=== PATIENT | male | born 1955 | race Caucasian/White ===

== ENCOUNTER → 2023-10-08 10:04 | Outpatient (BNVA) | payer MEDICARE, MEDICAID, SELFPAY | PROVIDERS: PCP Nurse Practitioner Family; Referring Provider Nurse Practitioner Family; Visit Provider Internal Medicine | DX: M81.0 Age-related osteoporosis without current pathological fracture (principal); E21.3 Hyperparathyroidism, unspecified; E55.9 Vitamin D deficiency, unspecified | CPT/HCPCS: 36415; 80053; 82306; 82310; 83970; 99204 ==

== ENCOUNTER 2023-11-10 08:00 | Outpatient (CLI) | payer MEDICARE, MEDICAID, SELFPAY ==
--- NOTE | 2023-11-10 08:00 | NM_ITS ---
WS: [id number] EXAMINATION: NM parathyroid [id number] ORDER DATE: 11/10/2023 9:00 AM COMPARISON: No prior comparisons HISTORY: E21.3 - Hyperparathyroidism, unspecified TECHNIQUE: Parathyroid scintigraphy with 19.1 mCi of technetium 99m administered. AP and oblique views obtained with and without chin and suprasternal notch markers. Initial and 2 hour delayed imagi ng acquired. FINDINGS: Retained nodular activity inferior to the RIGHT thyroid suspicious for parathyroid adenoma on the de layed imaging. Normal salivary gland activity. Nodular activity overlying the inferior RIGHT thyroid lobe suspicious for thyroid nodule. Normal homogeneous uptake LEFT thyroid lobe NM/NM parathyroid [id number] IMPRESSION: 1. Persistent retained nodular activity inferior to the RIGHT thyroid lobe erin picious for parathyroid adenoma just above the suprasternal notch 2. Slight nodular activity corresponding to the inferior RIGHT thyroid suspici ous for a thyroid nodule. This could be further evaluated with ultrasound.
== END 2023-11-10 08:21 | disposition home or self-care (01) ==
PROVIDERS: PCP Nurse Practitioner Family; Visit Provider Internal Medicine
DX: E21.3 Hyperparathyroidism, unspecified (principal); E04.2 Nontoxic multinodular goiter
CPT/HCPCS: 78070; A9500

== ENCOUNTER → 2023-12-02 09:15 | Outpatient (BNVA) | payer MEDICARE, MEDICAID, SELFPAY | PROVIDERS: PCP Nurse Practitioner Family; Visit Provider Internal Medicine | DX: M81.0 Age-related osteoporosis without current pathological fracture (principal); E21.0 Primary hyperparathyroidism; E55.9 Vitamin D deficiency, unspecified; E04.1 Nontoxic single thyroid nodule; I25.10 Atherosclerotic heart disease of native coronary artery without angina pectoris; K08.9 Disorder of teeth and supporting structures, unspecified; E21.3 Hyperparathyroidism, unspecified; R07.9 Chest pain, unspecified | CPT/HCPCS: 99214 ==

== ENCOUNTER → 2023-12-15 12:36 | Outpatient (BNVA) | payer MEDICARE, MEDICAID, SELFPAY | PROVIDERS: PCP Nurse Practitioner Family; Referring Provider Internal Medicine; Visit Provider Internal Medicine Cardiovascular Disease | DX: I25.10 Atherosclerotic heart disease of native coronary artery without angina pectoris (principal) | CPT/HCPCS: 93005 ==

== ENCOUNTER 2023-12-29 08:03 | Outpatient (CLI) | payer MEDICARE, MEDICAID, SELFPAY ==
--- NOTE | 2023-12-29 08:08 | US_ITS ---
WS: [id number] THYROID ULTRASOUND HISTORY: THYROID NODULE COMPARISON: Parathyroid nuclear medicine scan 11/10/2023 Right lobe: 2.0 cm x 1.9 cm x 4.5 cm (w x ap x l). Volume: 8.6 cm3. Slightly enlarged thyroid. There is a hyperechoic, nearly isoechoic, to the remaining thyroid in the lower pole measuring 1.2 x 1.1 x 1.1 cm. Mild increased vascularity. No calcifications. Left lobe: 1.7 cm x 1.7 cm x 4.5 cm (w x ap x l). Volume: 5.9 cm3. Normal size and echotexture. No significant or dominant nodules are present. Isthmus: 0.4 cm. US/US thyroid [id number] IMPRESSION: 1. TI-RADS 3; hyperechoic nodule lower pole RIGHT thyroid. As per TI-RADS crit eria no additional follow-up necessary. 2. No additional nodules.
== END 2023-12-29 08:04 | disposition home or self-care (01) ==
LOC: RAD 08:03
PROVIDERS: PCP Nurse Practitioner Family; Visit Provider Internal Medicine Cardiovascular Disease
DX: E04.1 Nontoxic single thyroid nodule (principal)
CPT/HCPCS: 76536

== ENCOUNTER 2024-01-18 08:03 | Outpatient (CLI) | payer MEDICARE, MEDICAID, SELFPAY ==
--- NOTE | 2024-01-18 | ECG_ITS ---
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 Baseline heart rate was 56 beats per minute. Baseline blood pressure was 100 3785 millimeters of mercury. Target heart rate was 151 beats per minute. Maximum heart rate achieved was 141, which was 93 % of the target heart rate. Maximum blood pressure was 153/93 millimeters of mercury. Total exercise time was 5 minutes 50 seconds, maximum METs achieved was 7, maximum VO2 was 24.5. The reason for ending the test was maximum effort achieved. The patient complained of shortness of breath during the stress test, which then resolved at the end of the test. 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 RECOVERY: During the recovery period, heart rate dropped appropriately. No significant ST-T changes in the recovery suggestive of ischemia noted. PVCs were noted CONCLUSION: 1. Exercise capacity fair. 2. Heart rate response was tachycardic. 3. Blood pressure response was appropriate. 4. Symptoms not suggestive of ischemia. 5. Electrocardiogram portion of the stress test was not suggestive of ischemia. 6. Nuclear scan will be documented separately. Please note that due to underachievement of METS specificity and sensitivity of the EKG segment of stress test will be low Electronically Signed On 01-19-2024 23:36:00 [employer] by MO FISCHER [email or web address]
[2024-01-18 08:20] VITALS: BMI 25.0
--- NOTE | 2024-01-18 08:21 | NMCV_ITS ---
NM ryanne perf SPECT r/s* [id number] Buster Neal Age: 68 Gender: M : 1955 Exam Date: 01/18/2024 08:21 Ordering Phys: Mo Brewer MD ([email or web address]) Technologist: HIREN Peter Exam Location: [facility] Indications: cp STRESS TEST Please see separate stress test report in [facility] for full findings IMAGE PROTOCOL Rest/Stress 1 Exercise Day Radiopharmaceutical Dose (mCi) Administration Site Administered by Rest: Tc-99m 10.5 IV HIREN Peter Sestamibi Stress:Tc-99m 32.3 IV HIREN Peter Sestamibi Rest: 18-Jan-2024 60 Discovery 630 Stress: 18-Jan-2024 15 Discovery 630 Radiopharmaceutical was injected at 85 % maximum heart rate. Images obtained in supine and prone position. SPECT RESULTS Technical Quality: Good Raw Data Analysis: Normal Image Corrections: No attenuation or motion correction applied Summed Stress Score: 20 Summed Rest Score: 20 Summed Difference Score: 0 PERFUSION FINDINGS Large sized areas of fixed perfusion defect seen in apical, apical anterior, apical inferior and inferolateral mcghee. 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 FUNCTIONAL RESULTS (calculated via Gated SPECT) Stress Image LV EF (%): 44 Stress EDV (mL):142 TID: 0.92 Stress ESV (mL):80 FUNCTIONAL FINDINGS: LV function is systolic function is mild to moderately reduced. IMPRESSIONS 1. Abnormal myocardial perfusion imaging with large areas of prior infarct seen in the distribution of all 3 coronary arteries. No significant ischemia. 2. LV systolic function is mild to moderately reduced. Melvin Mcconnell MD (Electronically Signed) Final Date: 20 January 2024 11:48 S
--- NOTE | 2024-01-18 08:41 | USCV_ITS ---
Buster Neal Age: 68 Gender: M : 1955 Exam Date: 01/18/2024 08:49 Ordering Phys: Mo Brewer MD ([email or web address]) Technologist: Exam Location: [facility] [place] Indication: chest pain BP: / HR: 56 Rhythm: Sinus Technical Quality: Adequate MEASUREMENTS (Male / Female) Normal Values 2D ECHO LV Diastolic Diameter PLAX 4.8 cm 4.2 - 5.9 / 3.9 - 5.3 cm IVS Diastolic Thickness 1.3 cm 0.6 - 1.0 / 0.6 - 0.9 cm IVS Systolic Thickness 1.7 cm LVPW Diastolic Thickness 1.1 cm 0.6 - 1.0 / 0.6 - 0.9 cm LVPW Systolic Thickness 1.9 cm LVOT Diameter 2.1 cm LV Ejection Fraction 2D Teich 62.1 % LV Ejection Fraction MOD 4C 42.8 % LV Ejection Fraction MOD 2C 53.1 % LV Ejection Fraction 2C AL 53.1 % LA Diameter 3.5 cm RA Systolic Volume 4C AL 49.3 ml RA Systolic Volume 4C MOD 48.1 ml Aorta at Sinotubular Diameter 3.0 cm IVC Diameter 2.7 cm M-MODE LA Ao Ratio MM 1.0 AV Cusp Separation MM 2.8 cm DOPPLER AV Peak Velocity 111.0 cm/s LVOT Peak Velocity 86.0 cm/s AV Area Cont Eq vti 3.1 cm squared AV Area Cont Eq pk 2.6 cm squared MV Peak Velocity 85.0 cm/s MV Area PHT 3.8 cm squared Mitral E to A Ratio 0.8 TV Peak Velocity 147.5 cm/s TR Peak Velocity 149.0 cm/s TR Peak Gradient 8.9 mmHg TV Peak E Velocity 69.0 cm/s PV Peak Velocity 95.0 cm/s FINDINGS Left Ventricle Left ventricle is normal in size. LV systolic function is mildly reduced with EF of 45-50%. Moderate hypokinesis of apical wall. Grade 1 diastolic dysfunction Right Ventricle Normal in size and function Right Atrium Normal in size Left Atrium Normal in size Mitral Valve Structurally normal mitral valve. Trace mitral regurgitation. Aortic Valve Structurally normal aortic valve. No significant stenosis or regurgitation. Tricuspid Valve Mild tricuspid regurgitation. Insufficient TR jet to calculate RVSP Pulmonic Valve Not well visualized Pericardium Normal Aorta Normal in size IVC Appears to be normal CONCLUSIONS LV systolic function is mildly reduced with EF of 45-50%. Above mentioned regional wall motion abnormalities. Grade 1 diastolic dysfunction Trace mitral regurgitation Mild tricuspid regurgitation No comparison studies are available. Melvin Mcconnell MD (Electronically Signed) Final Date: 22 January 2024 08:51 S
[2024-01-18 10:21] VITALS: BP 153/62; PULSE 62
== END 2024-01-18 08:04 | disposition home or self-care (01) ==
LOC: CDL 08:05
PROVIDERS: PCP Nurse Practitioner Family; Visit Provider Internal Medicine Cardiovascular Disease
DX: I25.10 Atherosclerotic heart disease of native coronary artery without angina pectoris (principal); R07.9 Chest pain, unspecified; R06.02 Shortness of breath; R94.39 Abnormal result of other cardiovascular function study; I50.30 Unspecified diastolic (congestive) heart failure; I51.89 Other ill-defined heart diseases
CPT/HCPCS: 36415; 78452; 93017; 93306; A9500

== ENCOUNTER → 2024-02-01 08:30 | Outpatient (BNVA) | payer MEDICARE, MEDICAID, SELFPAY | PROVIDERS: PCP Nurse Practitioner Family; Visit Provider Internal Medicine | DX: M81.0 Age-related osteoporosis without current pathological fracture (principal); E55.9 Vitamin D deficiency, unspecified; E21.0 Primary hyperparathyroidism; E04.1 Nontoxic single thyroid nodule; I25.10 Atherosclerotic heart disease of native coronary artery without angina pectoris; K08.9 Disorder of teeth and supporting structures, unspecified | CPT/HCPCS: 99214 ==

== ENCOUNTER → 2024-04-12 15:15 | Outpatient (BNVA) | payer MEDICARE, MEDICAID, SELFPAY | PROVIDERS: PCP Nurse Practitioner Family; Visit Provider Internal Medicine Cardiovascular Disease | DX: I25.10 Atherosclerotic heart disease of native coronary artery without angina pectoris (principal); R94.39 Abnormal result of other cardiovascular function study; Z87.891 Personal history of nicotine dependence; I10 Essential (primary) hypertension | CPT/HCPCS: 99214 ==

== ENCOUNTER → 2024-08-01 10:45 | Outpatient (BNVA) | payer MEDICARE, MEDICAID, SELFPAY | PROVIDERS: PCP Nurse Practitioner Family; Visit Provider Internal Medicine | DX: E04.1 Nontoxic single thyroid nodule (principal); E21.0 Primary hyperparathyroidism; E55.9 Vitamin D deficiency, unspecified; M81.0 Age-related osteoporosis without current pathological fracture; K08.9 Disorder of teeth and supporting structures, unspecified; I25.10 Atherosclerotic heart disease of native coronary artery without angina pectoris | CPT/HCPCS: 99214 ==

== ENCOUNTER → 2024-10-04 15:46 | Outpatient (BNVA) | payer MEDICARE, MEDICAID, SELFPAY | PROVIDERS: PCP Nurse Practitioner Family; Visit Provider Internal Medicine Cardiovascular Disease | DX: I25.5 Ischemic cardiomyopathy (principal); E78.5 Hyperlipidemia, unspecified; I10 Essential (primary) hypertension; Z79.82 Long term (current) use of aspirin; F17.290 Nicotine dependence, other tobacco product, uncomplicated; Z95.5 Presence of coronary angioplasty implant and graft; I25.2 Old myocardial infarction | CPT/HCPCS: 99214 ==